=== PATIENT | female | born 1970 | race Caucasian/White ===

== ENCOUNTER → 2016-06-12 | Outpatient (CLI) | payer OTHER | END | disposition short-term general hospital (02) | LOC: CLORTH 10:28 | DX: S83.511A Sprain of anterior cruciate ligament of right knee, initial encounter (principal); S83.221A Peripheral tear of medial meniscus, current injury, right knee, initial encounter; M22.41 Chondromalacia patellae, right knee ==

== ENCOUNTER → 2016-07-24 | Outpatient (CLI) | payer OTHER | END | disposition short-term general hospital (02) | LOC: CLORTH 13:26 | DX: S83.511D Sprain of anterior cruciate ligament of right knee, subsequent encounter (principal); S83.241D Other tear of medial meniscus, current injury, right knee, subsequent encounter ==

== ENCOUNTER → 2016-08-21 | Outpatient (CLI) | payer OTHER | END | disposition short-term general hospital (02) | LOC: CLORTH 10:02 | DX: S83.511D Sprain of anterior cruciate ligament of right knee, subsequent encounter (principal); S83.241D Other tear of medial meniscus, current injury, right knee, subsequent encounter ==